=== PATIENT | female | born 2000 | race Caucasian/White ===

== ENCOUNTER 2021-10-19 10:46 | Emergency (ER) | payer MEDICAID ==
--- NOTE | 2021-10-19 11:56 | ED General ---
General Chief Complaint: Head/Cervical Problems Stated Complaint: MIGRAINE/VISION DISTURBANCE Nursing Triage Note: PT AMB TO FT WITH C/O MIGRAINES FOR A FEW DAYS AND IT IS CAUSING HER EYES TO HURT. PT STATES SHE TOOK TYLENOL LAST NIGHT. PT DENIES MIGRAINE TODAY. Source of Information: Patient Exam Limitations: No Limitations History of Present Illness Date Seen by Provider: Oct 19, 2021 Time Seen by Provider: 11:27 Initial Comments This 21-year-old young lady presents to the emergency room with temporal and occipital headaches for about the past 3 weeks. She has concurrent eye discomfort, especially with bright lights. She denies any blurry vision or auras. Prior to this she rarely had headaches. Her pain at this time is minimal. She recently moved to the area and started a new job yesterday. She denies any neurologic deficits, nausea, or vomiting. She has a secondary complaint of dark vaginal discharge. Her LMP was about 3 days ago and is ongoing. She denies any pelvic pain. She has only taken Tylenol for the pain thus far. She has been in a monogamous relationship for about 18 months. She has no suspicion of other partners. Allergies and Home Medications Allergies Coded Allergies: No Known Drug Allergies (Unverified , 10/19/21) Patient Home Medication List Home Medication List Reviewed: Yes Review of Systems Review of Systems Constitutional: no symptoms reported EENTM: see HPI Respiratory: no symptoms reported Cardiovascular: no symptoms reported Gastrointestinal: no symptoms reported Genitourinary: see HPI : No LMP: Oct 16, 2021 Musculoskeletal: other (Neck tension) Skin: no symptoms reported Psychiatric/Neurological: See HPI Hematologic/Lymphatic: No Symptoms Reported Past Jdiueej-Gxvxkb-Qvniwy Hx Patient Social History Tobacco Use?: Yes Tobacco type used: Cigarettes Use of E-Cig and/or Vaping dev: Yes E-Cig or Vaping type used: Nicotine Substance use?: No Alcohol Use?: Yes Alcohol Frequency: Once in a while Immunizations Up To Date Influenza Vaccine Up-to-Date: No; Not Current First/Initial COVID19 Vaccinat: 2020 Past Medical History Surgery/Hospitalization HX: DENIES Surgeries: No Respiratory: No Cardiac: No Neurological: No : No Last Menstrual Period: Oct 16, 2021 Reproductive Disorders: Yes Sexually Transmitted Disease: Yes (Chlamydia) Genitourinary: No Gastrointestinal: No Musculoskeletal: No Endocrine: No HEENT: No Cancer: No Psychosocial: No Integumentary: No Physical Exam Vital Signs Vital Signs - First Documented 10/19/21 10:58 Temp 36.6 Pulse 73 Resp 14 B/P (MAP) 101/71 (81) Capillary Refill : Height, Weight, BMI Height: '" Weight: lbs. oz. kg; BMI Method: General Appearance: No Apparent Distress, WD/WN HEENT: PERRL/EOMI, TMs Normal, Normal ENT Inspection, Pharynx Normal Neck: Normal Inspection, Other (Slight tenderness at the base of the skull and in the paraspinous muscles) Respiratory: Lungs Clear, Normal Breath Sounds, No Accessory Muscle Use Cardiovascular: Regular Rate, Rhythm, No Edema, No Murmur Gastrointestinal: Normal Bowel Sounds, Non Tender, Soft; No Distended Extremity: Normal Inspection, No Pedal Edema Neurologic/Psychiatric: Alert, Oriented x3, No Motor/Sensory Deficits, counter former II- XII Norm as Tested, Other (Slightly anxious when discussing some topics) Skin: Normal Color, Warm/Dry Progress/Results/Core Measures Suspected Sepsis SIRS Temperature: Pulse: 73 Respiratory Rate: 14 Blood Pressure 101 /71 Mean: 81 Results/Orders Lab Results Laboratory Tests Test 10/19/21 12:20 Range/Units Urine Color YELLOW Urine Clarity CLEAR Urine pH 6.0 5-9 Urine Specific [place] <=1.005 1.016-1.022 Urine Protein NEGATIVE NEGATIVE Urine Glucose (UA) TRACE H NEGATIVE Urine Ketones NEGATIVE NEGATIVE Urine Nitrite NEGATIVE NEGATIVE Urine Bilirubin NEGATIVE NEGATIVE Urine Urobilinogen 0.2 < = 1.0 MG/DL Urine Leukocyte Esterase NEGATIVE NEGATIVE Urine RBC (Auto) 3+ H NEGATIVE Urine RBC 5-10 H /HPF Urine WBC NONE /HPF Urine Squamous Epithelial Cells 0-2 /HPF Urine Crystals NONE /LPF Urine Bacteria NEGATIVE /HPF Urine Casts NONE /LPF Urine Mucus NEGATIVE /LPF Urine Culture Indicated NO My Orders Orders - MAEGAN PERKINS MD Cbc With Automated Diff (10/19/21 11:46) Comprehensive Metabolic Panel (10/19/21 11:46) Hs C Reactive Protein (10/19/21 11:46) Hcg,Qualitative Serum (10/19/21 11:46) Magnesium (10/19/21 11:46) Thyroid Stimulating Hormone (10/19/21 11:46) Ua Culture If Indicated (10/19/21 11:46) Erythrocyte Sedimentation Rate (10/19/21 11:46) Free T4 (Free Thyroxine) (10/19/21 11:46) Vital Signs/I&O 10/19/21 10:58 Temp 36.6 Pulse 73 Resp 14 B/P (MAP) 101/71 (81) Capillary Refill : Blood Pressure Mean: 81 Progress Note : Time: 11:55 Progress Note Patient was interviewed and examined. She does not need any medication for her symptoms at this time. We discussed possibilities for work-up including labs to evaluate for possible systemic or inflammatory problems. She would like to proceed with lab work and urinalysis. She declines a pelvic exam and would like to defer that to primary care. Departure Impression Primary Impression: Pain around both eyes Additional Impressions: Temporal headache Vaginal discharge Disposition: HOME, SELF-CARE Condition: Stable Departure-Patient Inst. Referrals: NO,LOCAL PHYSICIAN (PCP/Family) Primary Care Physician Patient Instructions: Headache, Adult (DC), Vaginal Discharge Add. Discharge Instructions: Follow-up with an professional engineer soon as possible for a dedicated eye exam. Contact your eye doctor and request an expedited appointment as follow-up from an ER visit. For headache you may try taking ibuprofen up to 600 mg every 6 hours as needed and/or Tylenol (acetaminophen) up to 1000 mg every 6 hours as needed. Muscle tension in your neck may be a contributing factor. You may try methods for muscle relaxation such as gentle heat and gentle stretching. Attention to your posture and tension in your neck may be helpful. Your labs were pending at the time of your discharge from the ER. If you do not receive a phone call from the emergency room provider this afternoon, please call this evening for results. Your urine specimen showed no signs of infection. See your primary care provider or a women's health provider as soon as possible for a pelvic exam. Follow-up with your primary care provider soon as possible for further discussion on your headaches and a general checkup. Return to the ER if you have worsening symptoms despite following these instructions. All discharge instructions reviewed with patient and/or family. Voiced understanding. MAEGAN PERKINS MD Oct 19, 2021 11:56
[2021-10-19 12:27] LABS: BILIRUBIN,URINE NEGATIVE (NEGATIVE); CLARITY,URINE CLEAR; COLOR,URINE YELLOW; GLUCOSE, URINE (UA) TRACE (NEGATIVE); KETONES,URINE NEGATIVE (NEGATIVE); LEUKOCYTE ESTERASE ,URINE NEGATIVE (NEGATIVE); NITRITE,URINE NEGATIVE (NEGATIVE); PROTEIN,URINE NEGATIVE (NEGATIVE)
[2021-10-19 12:53] LABS: BACTERIA,URINE NEGATIVE /HPF; SQUAMOUS EPITHELIAL CELL,UR 0-2 /HPF
[2021-10-19 13:48] LABS: BASOPHILS % (AUTO) 0 % (0-10); EOSINOPHILS # (AUTO) 0.1 10^3/uL (0.0-0.3); EOSINOPHILS % (AUTO) 1 % (0-10); HEMATOCRIT 43 % (35-52); HEMOGLOBIN 14.8 g/dL (11.5-16.0); LYMPHOCYTES # (AUTO) 2.4 10^3/uL (1.0-4.0); LYMPHOCYTES % (AUTO) 45 % (12-44); MEAN CORPUSCULAR HEMOGLOBIN 31 pg (25-34); MEAN CORPUSCULAR HGB CONC 35 g/dL (32-36); MEAN CORPUSCULAR VOLUME 88 fL (80-99); MEAN PLATELET VOLUME 10.3 fL (9.0-12.2); MONOCYTES # (AUTO) 0.3 10^3/uL (0.0-1.0); MONOCYTES % (AUTO) 6 % (0-12); NEUTROPHILS # (AUTO) 2.5 10^3/uL (1.8-7.8); NEUTROPHILS % (AUTO) 48 % (42-75); PLATELET COUNT 222 10^3/uL (130-400); WHITE BLOOD COUNT 5.3 10^3/uL (4.3-11.0)
[2021-10-19 13:55] VITALS: BP 112/80
[2021-10-19 14:05] LABS: ALBUMIN 4.4 GM/DL (3.2-4.5); POTASSIUM 3.8 MMOL/L (3.6-5.0)
[2021-10-19 14:08] LABS: TOTAL PROTEIN 7.4 GM/DL (6.4-8.2)
[2021-10-19 14:09] LABS: BILIRUBIN,TOTAL 0.4 MG/DL (0.1-1.0); ERYTHROCYTE SEDIMENTATION RATE 6 MM/HR (0-20)
[2021-10-19 14:12] LABS: CREATININE SERUM 0.73 MG/DL (0.60-1.30)
[2021-10-19 14:14] LABS: MAGNESIUM 2.2 MG/DL (1.6-2.4)
[2021-10-19 14:35] LABS: FREE T4 (FREE THYROXINE) 0.94 NG/DL (0.70-1.48)
== END 2021-10-19 13:55 | disposition home or self-care (01) ==
LOC: ER 10:49
DX: R51.9 Headache, unspecified (principal); N89.8 Other specified noninflammatory disorders of vagina; F17.210 Nicotine dependence, cigarettes, uncomplicated; F17.290 Nicotine dependence, other tobacco product, uncomplicated; Z28.311 Partially vaccinated for COVID-19
CPT/HCPCS: 36415; 80053; 81000; 83735; 84439; 84443; 84703; 85025; 85652; 86141

== ENCOUNTER 2021-11-11 17:26 | Emergency (ER) | payer MEDICAID ==
[~2021-11-11] VITALS: Ht 157.5 cm; Wt 68.0 kg
[2021-11-11 17:56] LABS: BILIRUBIN,URINE NEGATIVE (NEGATIVE); CLARITY,URINE CLOUDY; COLOR,URINE YELLOW; GLUCOSE, URINE (UA) TRACE (NEGATIVE); KETONES,URINE NEGATIVE (NEGATIVE); LEUKOCYTE ESTERASE ,URINE 1+ (NEGATIVE); NITRITE,URINE POSITIVE (NEGATIVE); PH,URINE 5.5 (5-9); PROTEIN,URINE 1+ (NEGATIVE)
[2021-11-11 18:11] LABS: BACTERIA,URINE MODERATE /HPF; RBC,URINE 25-50 /HPF; WBC,URINE 50-100 /HPF
--- NOTE | 2021-11-11 18:15 | ED GU-Female ---
General Chief Complaint: - Reproductive Stated Complaint: UTI SYMPTOMS Nursing Triage Note: PT AMB TO TRIAGE WITH COMPLAINT OF PAIN AFTER URINATING. STATES SHE IS HAVING FREQUENT URINATION. STARTED IN THE MIDDLE OF THE NIGHT. Source: patient History of Present Illness Date Seen by Provider: Nov 11, 2021 Time Seen by Provider: 17:55 Initial Comments PT ARRIVES VIA POV FROM HOME C/O UTI SYMPTOMS SINCE THURSDAY NIGHT--WORSE SINCE LAST NIGHT C/O BURNING, URGENCY AND FREQUENCY. NO FEVER NO ABDOMINAL PAIN NO HEMATURIA NO NAUSEA/VOMITING NO SR ACCOUNT EXECUTIVE SYMPTOMS LMP--NOW NO HISTORY OF [facility] PCP; [facility] [place]--JUST MOVED HERE Allergies and Home Medications Allergies Coded Allergies: No Known Drug Allergies (Unverified , 10/19/21) Patient Home Medication List Home Medication List Reviewed: Yes Nitrofurantoin Monohyd/M-Cryst (Macrobid 100 mg Capsule) 100 Mg Capsule, 1 TAB PO BID Prescribed by: SCOOTER PAZ on 11/11/211826 Phenazopyridine HCl (Pyridium) 200 Mg Tablet, 1 TAB PO TID Prescribed by: SCOOTER PAZ on 11/11/211826 Review of Systems Review of Systems Constitutional: no symptoms reported Respiratory: no symptoms reported Cardiovascular: no symptoms reported Gastrointestinal: no symptoms reported Genitourinary: see HPI : No Musculoskeletal: no symptoms reported Skin: no symptoms reported Psychiatric/Neurological: No Symptoms Reported Past Uqeyvok-Lntqfx-Byrxfh Hx Patient Social History Tobacco Use?: Yes Tobacco type used: Cigarettes Smoking Status: Current Everyday Smoker Use of E-Cig and/or Vaping dev: No Substance use?: No Alcohol Use?: Yes Alcohol Frequency: Once in a while Pt feels they are or have been: No Immunizations Up To Date First/Initial COVID19 Vaccinat: 2020 Second COVID19 Vaccination Myron: 2020 Third COVID19 Vaccination Date: 2020 Past Medical History Surgery/Hospitalization HX: DENIES Surgeries: No Respiratory: No Cardiac: No Neurological: No Last Menstrual Period: Nov 11, 2021 Reproductive Disorders: Yes Sexually Transmitted Disease: Yes (Chlamydia) Genitourinary: No Gastrointestinal: No Musculoskeletal: No Endocrine: No HEENT: No Cancer: No Psychosocial: No Integumentary: No Physical Exam Vital Signs Vital Signs - First Documented 11/11/21 17:37 Temp 36.3 Pulse 63 Resp 16 B/P (MAP) 110/69 (83) Pulse Ox 99 O2 Delivery Room Air Capillary Refill : Less Than 3 Seconds Height, Weight, BMI Height: '" Weight: lbs. oz. kg; 27.00 BMI Method: General Appearance: WD/WN, no apparent distress Cardiovascular: regular rate, rhythm Respiratory: normal breath sounds Gastrointestinal: non tender, soft Back: no CVA tenderness, no vertebral tenderness Extremities: normal inspection Neurologic/Psychiatric: no motor/sensory deficits, alert, normal mood/affect, oriented x 3 Skin: normal color, warm/dry Progress/Results/Core Measures Suspected Sepsis SIRS Temperature: Pulse: 63 Respiratory Rate: 16 Blood Pressure 110 /69 Mean: 83 Results/Orders Lab Results Laboratory Tests Test 11/11/21 17:46 Range/Units Urine Color YELLOW Urine Clarity CLOUDY Urine pH 5.5 5-9 Urine Specific [place] >=1.030 1.016-1.022 Urine Protein 1+ H NEGATIVE Urine Glucose (UA) TRACE H NEGATIVE Urine Ketones NEGATIVE NEGATIVE Urine Nitrite POSITIVE H NEGATIVE Urine Bilirubin NEGATIVE NEGATIVE Urine Urobilinogen 0.2 < = 1.0 MG/DL Urine Leukocyte Esterase 1+ H NEGATIVE Urine RBC (Auto) 3+ H NEGATIVE Urine RBC 25-50 H /HPF Urine WBC 50-100 H /HPF Urine Squamous Epithelial Cells 2-5 /HPF Urine Crystals NONE /LPF Urine Bacteria MODERATE H /HPF Urine Casts NONE /LPF Urine Mucus MODERATE H /LPF Urine Culture Indicated YES Urine Test NEGATIVE NEGATIVE My Orders Orders - SCOOTER PAZ DO Urine Bedside (11/11/21 17:52) Ua Culture If Indicated (11/11/21 17:52) Urine Culture (11/11/21 17:46) Hcg,Qualitative Urine (11/11/21 18:12) Vital Signs/I&O 11/11/21 11/11/21 17:37 18:35 Temp 36.3 36.3 Pulse 63 63 Resp 16 16 B/P (MAP) 110/69 (83) 110/69 Pulse Ox 99 99 O2 Delivery Room Air Room Air Capillary Refill : Less Than 3 Seconds Blood Pressure Mean: 83 Departure Impression Primary Impression: Urinary tract infection Disposition: 01 HOME, SELF-CARE Condition: Stable Departure-Patient Inst. Decision time for Depature: 18:25 Referrals: YOKUM,AI L CUSTOM MILLER (PCP/Family) Primary Care Physician Patient Instructions: Urinary Tract Infection, Adult ED Add. Discharge Instructions: LOTS OF CLEAR LIQUIDS--NO COFFEE, POP OR TEA TYLENOL AND MOTRIN NEEDED FOR PAIN FOLLOW UP WITH [facility] CHOICE IN 2-3 DAYS IF NO BETTER All discharge instructions reviewed with patient and/or family. Voiced understanding. Scripts Phenazopyridine HCl (Pyridium) 200 Mg Tablet 1 TAB PO TID, #15 TAB Prov: SCOOTER PAZ DO 11/11/21 Nitrofurantoin Monohyd/M-Cryst (Macrobid 100 mg Capsule) 100 Mg Capsule 1 TAB PO BID, #20 CAP Prov: SCOOTER PAZ DO 11/11/21 SCOOTER PAZ DO Nov 11, 2021 18:14
[2021-11-11] MEDS ORDERED: NITR-65 PO (18:27)
[2021-11-11] MEDS ORDERED: PHEN-640 PO (18:27)
[2021-11-11 18:35] VITALS: BP 110/69
== END 2021-11-11 18:37 | disposition home or self-care (01) ==
LOC: EDUNIT# 17:26 → ER 17:29
DX: N39.0 Urinary tract infection, site not specified (principal); F17.210 Nicotine dependence, cigarettes, uncomplicated
CPT/HCPCS: 81000; 84703; 87077; 87088; 87186; 99282